=== PATIENT | male | born 1980 | race Caucasian/White ===

== ENCOUNTER 2023-08-26 10:42 | Outpatient (CLI) | payer BC, SELFPAY ==
--- NOTE | ~2023-08-26 | MMUS_ITS ---
EXAMINATION: MM diagnostic evelina RT w jevon, US breast RT limited HISTORY: Palpable right breast mass TECHNIQUE: 3-D tomosynthesis images of the right breast were performed and synthetic 2-D images were generated. CAD analysis was submitted and interpreted. High resolution limited right breast ultrasoun d was performed. COMPARISON: None BREAST PARENCHYMAL COMPOSITION:Not Dense. The breasts are almost entirely fatty FINDINGS: MAMMOGRAPHIC FINDINGS: No mass lesion or distortion seen. No suspicious microcalcifications seen. ULTRASOUND: There is apparent asymmetry of the right chest as compared to the left, which could reflect presence of lipoma versus asymmetry of the pectoralis muscle. IMPRESSION: Possible lipoma versus asymmetry of the pectoralis muscle on the right side. Consider CT or MR to be tter distinguish between these 2 possibilities. No suspicious abnormality seen. BI-RADS Category 2: Benign finding(s). Reviewed, dictated and finalized at [facility]. IMPRESSION: Possible lipoma versus asymmetry of the pectoralis muscle on the right side. C onsider CT or MR to better distinguish between these 2 possibilities. No suspic ious abnormality seen. BI-RADS Category 2: Benign finding(s).
== END 2023-08-26 10:43 | disposition home or self-care (01) ==
PROVIDERS: Visit Provider Physician Assistant
DX: N63.11 Unspecified lump in the right breast, upper outer quadrant (principal)
CPT/HCPCS: 76642; 77061; 77065; G0279